=== PATIENT | male | born 1955 | race Caucasian/White ===

== ENCOUNTER 2019-06-22 19:06 | Emergency (ER) | payer MEDICARE, OTHER ==
[2019-06-22] MEDS ORDERED: Morphine 4 MG/ML VIAL ONE ×2 (19:50→21:54)
[2019-06-22] MEDS ORDERED: Ondansetron PF 4 MG/2 ML Vial ONE (19:51)
[2019-06-22 20:02] LABS: Mean Corpuscular HGB CONC 32.2 g/dL (32.0-36.0); Mean Corpuscular Hemoglobin 30.7 pg (27.0-31.0); Mean Corpuscular Volume 95.1 fL (78.0-98.0); Mean Platelet Volume 6.1 fL (7.4-10.4); Platelet Count 281 thou/uL (130-400); RBC Distribution Width 17.7 % (11.5-14.5); Red Blood Cell (RBC) Count 1.95 mill/uL (4.70-6.10); White Blood Cell (WBC) Count 2.9 thou/uL (4.8-10.8)
[2019-06-22 20:12] LABS: ALT (SGPT) 28 U/L (8-55); AST (SGOT) 18 U/L (5-34); Albumin 3.5 g/dL (3.4-4.8); Alkaline Phosphatase 77 U/L (40-110); Anion Gap 13 mmol/L (10-20); BUN (Urea Nitrogen) 10 mg/dL (8.4-25.7); Bilirubin, Total 0.3 mg/dL (0.2-1.2); Calc. Creatinine Clearance 0 mL/min (70-130); Calcium 8.7 mg/dL (7.8-10.44); Carbon Dioxide 23 mmol/L (23-31); Chloride 94 mmol/L (98-107); Estimated GFR-MDRD Greater than 90; Globulin 2.4 g/dL (2.4-3.5); Glucose 104 mg/dL (80-115); Lipase 22 U/L (8-78); Potassium 4.1 mmol/L (3.5-5.1); Protein, Total 5.9 g/dL (5.8-8.1); Sodium 126 mmol/L (136-145)
[2019-06-22 20:19] LABS: Band 1 % (5-11); Basophilic Stippling MODERATE = 3-5 cells (100X) (None Seen); Hypochromia MODERATE=16-30 cells (100X) (0-5/hpf); Lymphocytes 28 % (21-51); MDiff Complete? YES; Macrocytosis MODERATE=16-30 cells (100X) (0-5/hpf); Monocytes 12 % (0-10); Neutrophil 56 % (42-75); Nucleated RBC 2 % (0); Reflex for Review?? NO
--- NOTE | 2019-06-22 22:30 | CT ---
CT ABDOMEN AND PELVIS WITHOUT CONTRAST: 06/22/19 No prior films were available for comparison. 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 Small effusions are seen in the lung bases, particularly on the right. The liver, spleen, pancreas, g allbladder, adrenal glands, and kidneys were unremarkable within the limitations of a noncontrast emelia dy. Calcification is seen in the aorta but there is no aneurysm. The wall of the proximal half to two thirds of the stomach seems rather thick. While the stomach is n ot completely distended which could be partially the cause, it appears distinctly different than the more distal portions of the stomach. Gastritis or even neoplasm (linitis plastica) might be valid co nsiderations. The bowel shows an abundance of fecal material throughout the colon, particularly in th e rectal vault which is mildly distended. There does not appear to be any dilation of bowel loops at the moment to suggest a emmy obstruction. No free air or free fluid was seen. CT of the pelvis was remarkable for distention of the urinary bladder. There was some minor diverticu losis noted without findings of diverticulitis. There are anterior compressions of the L1 and L4 vertebral bodies, predominantly the superior end maya trent. In each case, the findings appear longstanding, rather than acute. No bony destructive lesions were appreciated. IMPRESSION: 1. Small bilateral pleural effusions. 2. Constipation without emmy obstruction. 3. Thick walled proximal portion of the stomach. See discussion above. 4. Distended urinary bladder. Findings discussed with Dr. Patino at 2035 on 06/22/19. POS: HOME
[2019-06-22] MEDS ORDERED: Pantoprazole 40 MG VIAL ONE (22:44)
[2019-06-22] MEDS ORDERED: Sucralfate 1 GM TAB PO SCH (23:00)
== END 2019-06-23 02:40 | disposition short-term general hospital (02) ==
LOC: BURERS 19:06
DX: K92.2 Gastrointestinal hemorrhage, unspecified (principal); K59.00 Constipation, unspecified; E87.1 Hypo-osmolality and hyponatremia; I10 Essential (primary) hypertension; K21.9 Gastro-esophageal reflux disease without esophagitis; E78.00 Pure hypercholesterolemia, unspecified; I25.2 Old myocardial infarction; J44.9 Chronic obstructive pulmonary disease, unspecified; F17.210 Nicotine dependence, cigarettes, uncomplicated; Z86.73 Personal history of transient ischemic attack (TIA), and cerebral infarction without residual deficits; Z85.118 Personal history of other malignant neoplasm of bronchus and lung; Z85.21 Personal history of malignant neoplasm of larynx; Z79.82 Long term (current) use of aspirin; Z79.02 Long term (current) use of antithrombotics/antiplatelets; Z79.51 Long term (current) use of inhaled steroids
CPT/HCPCS: 36430; 74176; 80053; 82274; 83605; 83690; 85025; 86850; 86900; 86901; 86920; P9016; 36415; 96374; 96375; 96376; C9113; J2270; J2405